=== PATIENT | male | born 1995 | race Caucasian/White ===

== ENCOUNTER 2018-10-30 18:36 | Emergency (ER) | payer OTHER, SELFPAY ==
[2018-10-30 18:37] VITALS: BP 111/72; PULSE 120; RESP 16; TEMP 38.6; O2SAT 98; BMI 25.8
[2018-10-30 18:43] VITALS: BP 111/72; PULSE 112; RESP 14; TEMP 38.6; O2SAT 100
--- NOTE | 2018-10-30 18:45 | RAD_ITS ---
STUDY: X-RAY CHEST REASON FOR EXAM: Male, 23 years old. Cough. TECHNIQUE: PA and lateral views of the chest. COMPARISON: None. FINDINGS: The lungs are clear and expanded. There is no demonstrated pleural abnormality. Normal size heart. Normal mediastinum and robert. Normal visualized pulmonary arteries. Normal visualized aortic arch and descending thoracic aorta. There is minimal dextroscoliosis of the thoracic spine. Normal visualized ribs, clavicles, and shoulders. There is no demonstrated abnormality of the visualized soft tissue structures of the upper abdomen. RAD/Chest PA and Lateral IMPRESSION: No acute cardiopulmonary disease. Electronically Signed: Uriel Martinez DO at 19:40 EDT Tel [phone], Service support ,
--- NOTE | 2018-10-30 18:47 | ED.DCSUM_ITS ---
- ER Visit Summary Date of Service: 10/30/18 Chief Complaint: Back, head, chest pain History of Present Illness: The patient is a 23 M who presents with the above symptoms. It started early this morning. He states that he has had pain in his lower back as well as a headache and pain in his chest. Nothing makes his pain better or worse. He tried Excedrin without relief. He has had nausea without vomiting. He admits to some dysuria as well. He does have a history of migraine headaches in the past. He does have a mild sore throat as well. He is a smoker but denies any IV drug abuse. Physical Examination: Vital signs are reviewed. He is tachycardic with a temperature of 101.5. HEENT exam reveals erythematous throat but otherwise unremarkable. Heart is tachycardic and regular without murmurs. Lungs are clear to auscultation bilaterally. Abdomen is soft and nontender. He has diffuse lumbar tenderness to palpation. He has no rashes. His neurologic exam is normal. Test Results: White blood cell count 12. Potassium 3.4. Urinalysis and chest x-ray are negative for infection. Rapid strep is negative Emergency Department Course and Treatment: The patient was given Tylenol, normal saline, Toradol and Zofran. Upon reevaluation he was still having a headache. He was then given Reglan and Benadryl. The patient's exam is negative for any source of infection. He has no meningismus. I do not feel that this is meningitis. His neurologic exam is normal which would likely rule out encephalitis. He denies being an IV drug abuser so I doubt that a spinal epidural abscess would cause his symptoms. This is likely a viral illness. He will continue NSAIDs at home. I will give him naproxen. He will call his doctor tomorrow for follow-up. Treatment Plan: [] Disposition: Discharge Impression: Fever This note was generated with [employer] dictation software. It may contain incorrect words, spelling, and punctuation that were not noted in review of the chart prior to signing
--- NOTE | 2018-10-30 18:51 | ED.RN ---
PER DR. MARVIN, SEPSIS ALERT TO BE CANCELLED, IS NOT INDICATED AT THIS TIME. WILL CONTINUE TO MONITOR.
[2018-10-30] MEDS: Acetaminophen 500 MG Tablet 1000 MG PO (18:57)
[2018-10-30] MEDS: 0.9% Normal Saline 1,000 ML 999 ML IV ×2 (19:02→20:04)
[2018-10-30 19:11] LABS: Absolute Lymphocyte Count 0.76 X10^3/ul (0.83-4.51); Basophil# 0.02 X10^3/uL; Basophil% 0.2 % (0-1); Hemoglobin 17.3 g/dl (13.0-16.5); Lymphocyte # 0.76 X10^3/ul (4.0); Lymphocyte % 6.3 % (19-41); Mean Corp Hgb Conc 34.6 g/gl (32-36); Mean Corpuscular Volume 89.6 fL (80-94); Mean Platelet Vol. 11.1 fl (6.2-12.0); Monocyte# 1.21 X10^3/uL; Neutrophil # 10.01 X10^3/uL (2.7-7.7); Neutrophil % 83.2 % (47-70); Platelet Count 181 K/mm3 (150-450); RBC Distribution Width CV 12.9 % (11.6-14.6); RBC Distribution Width SD 42.7 fl (35.1-43.9); Red Blood Count 5.58 M/mm3 (4.6-6.2)
[2018-10-30 19:12] LABS: POSITIVE COUNT NO; POSITIVE DIFFERENTIAL NO; POSITIVE MORPHOLOGY NO
[2018-10-30 19:25] LABS: Anion Gap 8 (5-15); BUN 9 mg/dL (7-18); BUN/Creat Ratio 8.2 RATIO (10-20); Calcium,Total 9.3 mg/dL (8.5-10.1); Chloride 103 mmol/L (98-107); EST Glomerular Filtration Rate 87 mL/min (>60); Est Glom Filt Rate - Afr Amer 106 mL/min (>60); Estimated Creatinine Clearance 103.55 ml/min; Glucose 92 mg/dL (74-106); Potassium 3.4 mmol/L (3.5-5.1); Sodium Level 137 mmol/L (136-145)
--- NOTE | 2018-10-30 19:37 | ED.RN ---
PT REPORTS FEELING NAUSEOUS. DR. MARVIN INFORMED. PT TEMPERATURE ELEVATED. BLANKETS REMOVED FROM PT.
[2018-10-30 19:40] VITALS: BP 125/63; PULSE 107; RESP 16; TEMP 39.4; O2SAT 100
[2018-10-30] MEDS: Ketorolac 30 MG/ML Syringe IV (19:43)
[2018-10-30] MEDS: Ondansetron 4 MG/2 ML Vial IV (19:43)
--- NOTE | 2018-10-30 20:09 | ED.RN ---
PT ASSISTED UP TO RESTROOM 2 SEPARATE TIMES TO OBTAIN URINE SPECIMEN. PT UNABLE TO GIVE SPECIMEN EITHER TIME. PT BLADDER SCANNED SHOWING [address] MARVIN INFORMED AND ORDERS MORE FLUIDS. PT GIVEN ICE CHIPS. WILL CONTINUE TO MONITOR.
[2018-10-30 21:19] LABS: Bacteria 0 SEEN /hpf (None Seen); Mucous, Urine 0 SEEN /hpf (<or=2+); White Blood Cells 0 SEEN /hpf (0-5)
[2018-10-30 21:51] VITALS: BP 111/59; PULSE 86; RESP 17; TEMP 36.8; O2SAT 98
[2018-10-30 22:12] LABS: Color, Urine Yellow (Yellow); Glucose, Dipstick Normal (Normal); Ketone-Dipstick 50 mg/dl (Negative); Leukocyte Esterase-Dipstick Negative /ul (Negative); Nitrite-Dipstick Negative (Negative); Occult Blood-Urine 10 /ul (Negative); Protein-Dipstick Negative (Negative); Urine Bilirubin Dipstick Negative (Negative); Urine Clarity Sl. Cloudy (Clear); Urine Urobilinogen Normal (Normal)
[2018-10-30 22:29] LABS: Red Blood Cells-Urine 0-5 SEEN /hpf (0-5); Squamous Epithelial Cells - UA 0-5 SEEN /hpf (0-5)
[2018-10-30] MEDS: DiphenhydrAMINE 50 MG/ML Syringe 25 MG IV (22:38)
[2018-10-30] MEDS: Metoclopramide 10 MG/2 ML Vial IV (22:38)
--- NOTE | 2018-10-30 22:54 | ED.DEP ---
ED Disposition - Plan for ED Patient: Disposition: Home or Assisted Living Instructions: ED Fever Unconf Cause Prescriptions: RX: Naproxen [Naprosyn] 500 mg PO BID PRN #20 tab Referrals: Care Physician,No Primary [Primary Care Provider] -
[2018-10-30 23:33] VITALS: BP 98/47; PULSE 83; RESP 16; O2SAT 96
== END 2018-10-30 23:34 | disposition home or self-care (01) ==
PROVIDERS: Emergency Provider Emergency Medicine
DX: R50.9 Fever, unspecified (principal); R30.0 Dysuria; R51 Headache; R07.9 Chest pain, unspecified; R11.0 Nausea; M54.5 Low back pain; J02.9 Acute pharyngitis, unspecified; R00.0 Tachycardia, unspecified; F17.200 Nicotine dependence, unspecified, uncomplicated
CPT/HCPCS: 71046; 80048; 81001; 85025; 87880; 96361; 96374; 96375; 99283; J7030; A4216; J2405

== ENCOUNTER 2021-08-11 09:39 | Emergency (ER) | payer MEDICAID, SELFPAY ==
[2021-08-11 09:40] VITALS: BP 144/88; PULSE 86; RESP 17; TEMP 37.3; O2SAT 100; BMI 25.6
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
[2021-08-11] MEDS: Ibuprofen 400 MG Tablet 800 MG PO (10:17)
--- NOTE | 2021-08-11 10:19 | RAD_ITS ---
STUDY: X-RAY - RIGHT HAND REASON FOR EXAM: Male, 26 years old. Hand injury TECHNIQUE: 3 view(s) of the hand. COMPARISON: None. FINDINGS: Normal radiocarpal articulation. Normal distal radioulnar joint. Normal visualized carpal bones. Normal carpal articulations Normal carpometacarpal articulation of the thumb. Normal second through fifth carpometacarpal joints. Nondisplaced transverse fracture of the distal portion of the fifth metacarpal with mild dorsal angulation. Normal metacarpophalangeal joint of the thumb. Normal interphalangeal joint of the thumb. Normal proximal and distal phalanges of the thumb. Normal metacarpophalangeal joints of the second through fifth fingers. Normal proximal and distal interphalangeal joints of the second through fifth fingers. Normal phalanges of the second through fifth fingers. Diffuse soft tissue swelling. RAD/Hand Min 3 Views IMPRESSION: Nondisplaced transverse fracture along the distal portion of the fifth metacarpal with overlying soft tissue swelling and mild dorsal angulation. Electronically Signed: Kenyon Crockett MD at 10:58 EST ,
[2021-08-11] MEDS: HYDROcodone Bitartrate/Apap 5/325 Tablet PO (11:03)
== END 2021-08-11 11:16 | disposition home or self-care (01) ==
PROVIDERS: Emergency Provider Nurse Practitioner; Visit Provider Nurse Practitioner
DX: S62.396A Other fracture of fifth metacarpal bone, right hand, initial encounter for closed fracture (principal); W22.09XA Striking against other stationary object, initial encounter; Y93.89 Activity, other specified; Y99.8 Other external cause status; Y92.810 Car as the place of occurrence of the external cause; F17.210 Nicotine dependence, cigarettes, uncomplicated; F17.290 Nicotine dependence, other tobacco product, uncomplicated
CPT/HCPCS: 29126; 29125; 73130; 99283

== ENCOUNTER → 2022-01-10 | Outpatient (CLI) | payer BC, MEDICAID, SELFPAY | END | disposition home or self-care (01) | LOC: LABSPEC 12:06 | PROVIDERS: Visit Provider Family Medicine | DX: Z20.822 Contact with and (suspected) exposure to COVID-19 (principal) | CPT/HCPCS: 87635; U0003; U0005 ==

== ENCOUNTER → 2022-02-27 | Outpatient (CLI) | payer BC, MEDICAID, SELFPAY ==
--- NOTE | 2022-02-27 10:38 | MRI_ITS ---
STUDY: MRI THORACIC SPINE WITHOUT CONTRAST REASON FOR EXAM: Male, 26 years old. chronic thoracic back pain. Prior Xray and conservative treatmen TECHNIQUE: Standardized fat and water weighted pulse sequences were obtained in the sagittal and axial planes. COMPARISON: None. FINDINGS: Normal kyphosis of the thoracic spine. There is no substantial scoliosis. T1-2, T2-3, T3-4, T4-5, T5-6, T6-7, T7-8, T8-9, T9-10, T10-11, T11-12: Normal endplates. Normal disc hydration, heights and morphology of the corresponding intervertebral discs. Normal central canal and intervertebral neural foramina at the corresponding levels.Mild anterior Wedging T11 and T12. 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 No retropulsion. Normal visualized thoracic cord. Normal conus medullaris that terminates at the . The soft tissue structures are unremarkable. 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 No acute disease. Electronically Signed: Genaro Gongora MD at 22:57 EDT ,
== END | disposition home or self-care (01) ==
PROVIDERS: PCP Family Medicine; Visit Provider Family Medicine
DX: S22.080A Wedge compression fracture of T11-T12 vertebra, initial encounter for closed fracture (principal); X58.XXXA Exposure to other specified factors, initial encounter; M51.44 Schmorl's nodes, thoracic region; G89.29 Other chronic pain
CPT/HCPCS: 72146

== ENCOUNTER 2022-05-09 09:00 | Outpatient (RCR) | payer BC, MEDICAID, SELFPAY ==
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
--- NOTE | 2022-10-16 10:05 | HP.PT.NRP ---
RAMAN WATTS was seen in my office for initial evaluation on 04/26/22. The following Plan of Care was established for this patient: Initial Frequency: 2x /Week Initial Duration: 4 Weeks Patient/Client Instruction: Educate patient on: Condition, Plan of Care For the Purpose of:: To decrease pain, To increase ROM, To improve muscle performance and motor function, To improve ability of physical actions for home/community/work/leisure, To decrease soft tissue restriction, To increase flexibility/ROM, To reduce risk of recurrence, To prevent re-injury Therapeutic Exercise to Include: Strength training, Body mechanics, Postural training, Flexibilty training, Dynamic Lumbar Stabilization For the Purpose of:: To decrease pain, To increase ROM, To improve muscle performance and motor function, To improve ability to perform ADL's, To increase tolerance to activity/condition/position, To improve ability of physical actions for home/community/work/leisure, To improve health of tissue, To decrease soft tissue restriction, To increase flexibility/ROM, To prevent re-injury TENS: Yes IF ES: Yes Cryotherapy (ice pack, ice massage): Yes Thermo therapy (hot pack): Yes Ultrasound (thermal/non thermal): Yes For the Purpose of:: To decrease pain, To increase ROM, To improve health of tissue, To decrease soft tissue restriction This patient was last seen in our office . Pertinent comments regarding their Physical therapy will appear below: Patient was seen for PT for compression old fractures for HEP At this point I will be discontinuing this patient from physical therapy. I would be happy to see this patient again in the future if found appropriate by the physician. Thank you! Matt Montgomery, PT, Cert MDT, OCS Balance/Gait/Functional tests - Balance/Special Test Scores Oswestry Low Back Score: 22
== END 2022-05-09 19:00 | disposition home or self-care (01) ==
LOC: PT 09:00
PROVIDERS: PCP Family Medicine; Referring Provider Orthopaedic Surgery; Visit Provider Orthopaedic Surgery
DX: M54.6 Pain in thoracic spine (principal); Z87.81 Personal history of (healed) traumatic fracture
CPT/HCPCS: 97035; 97110; 97161

== ENCOUNTER 2023-01-15 00:01 | Emergency (ER) | payer MEDICAID, SELFPAY ==
[2023-01-15 00:02] VITALS: BP 133/69; PULSE 80; RESP 13; TEMP 36.4; O2SAT 100; BMI 27.1
--- NOTE | 2023-01-15 00:05 | EKG12_ITS ---
Test Reason : CP Blood Pressure : / mmHG Vent. Rate : 084 BPM Atrial Rate : 084 BPM P-R Int : 154 ms QRS Dur : 094 ms QT Int : 366 ms P-R-T Axes : 056 066 047 degrees QTc Int : 432 ms Normal sinus rhythm with sinus arrhythmia Normal ECG Confirmed by GIO CASTANEDA, KEVAN ([id number]), advertising editor WYATT BRADFORD ([id number]) on 01/15/2023 9:43:18 AM Referred By: SAMARA Confirmed By:KEVAN POWERS MD
--- NOTE | 2023-01-15 00:40 | RAD_ITS ---
EXAM: XR CHEST, 2 VIEWS CLINICAL INDICATION: chest pain TECHNIQUE: Frontal and lateral views of the chest. COMPARISON: 2 view chest 10/30/2018 FINDINGS: LUNGS AND PLEURAL SPACES: Unremarkable. No consolidation or edema. No pneumothorax. No effusion. HEART: Unremarkable. Cardiac silhouette not enlarged. MEDIASTINUM: Central airways and mediastinal contour are unremarkable. BONES/JOINTS: Unremarkable. SOFT TISSUES: Unremarkable. RAD/Chest PA and Lateral IMPRESSION: No radiographic evidence of acute cardiopulmonary disease. Electronically Signed: Byron Marin MD at 1:23 EDT ,
[2023-01-15] MEDS: Aspirin 325 MG Tablet PO (00:52)
[2023-01-15 01:01] VITALS: BP 128/72; PULSE 55; RESP 16; O2SAT 97
[2023-01-15 01:07] LABS: Troponin-I HS 4 pg/mL (3.0-78.0)
--- NOTE | 2023-01-15 01:32 | EDS_ITS ---
HPI History of Present Illness Chief Complaint: Chest Pain Informant: patient Narrative Narrative: PastPatient is a 27-year-old male medical history of compression fracture of the spine and hand fracture. He states he began work today at 6 PM and at that time noticed pain in his right chest wall. He states there is no trauma or excessive activity prior to the pain beginning. He denies any family history of cardiac disease at a young age. He denies any nausea vomiting diaphoresis or shortness of breath. He denies any history of illicit drug use. He states that there has been no recent travel surgery or history of DVT/PE. He reports he tried to make it through work but was having persistent pain and he does have a father who from a heart attack at age 56 and with this comes in for evaluation [facility] Medical History (Updated 01/15/23 @ 04:[address] Anthony Alonso, ) Anxiety Back pain Depression Full dentures Suicide attempt Home Medications buspirone 5 mg tablet 5 mg PO BID 04/12/22 [History Last Taken Unknown] Allergy/AdvReac Type Severity Reaction Status Date / Time ceftriaxone sodium Allergy Hives Verified 01/15/23 00:01 [From Rocephin] Family History (Updated 04/12/22 @ 14:15 by Angella Cornelius) Father Hypertension Myocardial infarction DDD (degenerative disc disease) Grandmother Myocardial infarction Diabetes Grandmother Myocardial infarction Diabetes Surgical History (Updated 04/12/22 @ 14:18 by Angella Cornelius) History of dental surgery Social History (Updated 04/12/22 @ 14:16 by Angella Cornelius) Smoking Status: Current every day smoker tobacco type: cigarettes and e- cigarettes alcohol intake: never substance use type: does not use what type of physical activity do you participate in: walking ROS ROS ED Constitutional Constitutional ED: Denies chills or fever(s) ENT ENT ED: Denies sore throat Cardiovascular Cardiovascular: Reports chest pain; Denies palpitations or racing heartbeat Respiratory/Chest Respiratory/Chest: Denies cough or dyspnea Gastrointestinal Gastrointestinal: Denies abdominal pain, diarrhea, nausea or vomiting Genitourinary Genitourinary ED: Denies dysuria Musculoskeletal Musculoskeletal: Denies myalgias Integumentary Denies rash Neurologic Neurologic: Denies headache(s) Hematologic/Lymphatic Hematologic/Lymphatic: Denies easy bleeding or easy bruising EXAM Physical Exam Const Vital Signs: 01/15/23 00:02 01/15/23 00:04 01/15/23 01:01 Temperature 97.6 F L Temperature Source Temporal Pulse Rate 80 55 L Respiratory Rate 13 16 Respiratory Effort Normal Blood Pressure 133/69 H 128/72 H Blood Pressure Mean 90 90 Pulse Ox 100 97 Oxygen Delivery Method Room Air 01/15/23 01:39 Temperature Temperature Source Pulse Rate 57 L Respiratory Rate 13 Respiratory Effort Blood Pressure 137/79 H Blood Pressure Mean Pulse Ox 96 Oxygen Delivery Method Positive well nourished and well developed General Appearance ED: well developed HEENT HEENT Narrative: Normocephalic atraumatic Eyes PERRL and EOMs intact bilaterally Neck supple Chest Wall Chest Narrative: There is reproducible anterior chest wall pain with palpation in the intercostal muscle belly regions ribs 6-8 the patient states is the same pain he has been experiencing. No overlying erythema or warmth. No bony deformity or crepitance Resp normal respiratory effort and clear to auscultation bilaterally Cardio regular rate and regular rhythm Rate: other Other Details: Radial and carotid pulses equal and symmetric GI normal to inspection, nondistended, normoactive bowel sounds, non-tender, non- distended and no masses GI Narrative: No voluntary guarding or rigidity. No pulsatile mass or fluid wave Auscultation: normoactive bowel sounds Palpation: soft Extremity normal to inspection Extremity Narrative: No asymmetric edema no pitting edema negative Homans' sign bilaterally Neuro oriented x3 and CN's II-XII intact bilaterally Sensorium / Orientation: alert Psych mental status grossly normal Skin no rashes or lesions noted MDM MDM MDM Narrative Medical decision making narrative: Patient presented to the ER with stable vitals and reported constant chest pain since approximately 6 PM. He is low risk for cardiovascular disease as well as DVT/PE but as he does have a father who had [place] and at age 55 I elected to perform a troponin EKG and chest x-ray. Differential diagnosis is for acute coronary syndrome versus pneumonia versus pneumothorax versus intercostal muscle strain versus anxiety. Patient is EKG revealed normal sinus rhythm without ischemic changes or findings concerning for pericarditis. Chest x-ray revealed no acute infiltrate pneumothorax or pleural effusion. Troponin was normal at 4 going against acute coronary syndrome or myocarditis. Therefore at this time as patient has a negative work-up with reproducible pain on exam I feel this is most likely chest wall/musculoskeletal pain and as he is low risk for cardiovascular disease is otherwise safe for discharge History & Record Review Discussion w/independent historian: Patient Lab Data Attestation: I reviewed the patient's lab results. Labs: Laboratory Results - last 24 hr 01/15/23 00:10 Troponin I High Sens 4 Radiography Diagnostic Testing: Clinical Impression(s) from Imaging Studies Chest X-Ray 01/15/23 00:40 IMPRESSION: No radiographic evidence of acute cardiopulmonary disease. Electronically Signed: Byron Marin MD at 1:23 EDT , Chest x-rays interpreted by the emergency medicine physician reveals no acute infiltrate pneumothorax pleural effusion or widening of the mediastinum Discharge Plan Triage Chief Complaint: Chest Pain ED Provider: Anthony Alonso Dx/Rx/DC Orders Clinical Impression: Acute nonspecific chest pain with low risk of coronary artery disease, Intercostal muscle strain Instructions: ED Chest Pain, Noncardiac, ED Chest Wall Strain Prescriptions: No Action buspirone 5 mg tablet 5 mg PO BID Stand Alone Forms: Work / School Excuse Primary Care Provider: Denisa Amor Referrals: Denisa Amor, DO [Primary Care Provider] - Disposition Disposition: Home, Self Care Discharge Date/Time: 01/15/23 01:41
[2023-01-15 01:39] VITALS: BP 137/79; PULSE 57; RESP 13; O2SAT 96
== END 2023-01-15 01:41 | disposition home or self-care (01) ==
PROVIDERS: Emergency Provider Emergency Medicine; PCP Family Medicine; Visit Provider Emergency Medicine
DX: S29.011A Strain of muscle and tendon of front wall of thorax, initial encounter (principal); X58.XXXA Exposure to other specified factors, initial encounter; F32.A Depression, unspecified; F41.9 Anxiety disorder, unspecified; F17.210 Nicotine dependence, cigarettes, uncomplicated; F17.290 Nicotine dependence, other tobacco product, uncomplicated; Z91.51 Personal history of suicidal behavior; Z82.49 Family history of ischemic heart disease and other diseases of the circulatory system
CPT/HCPCS: 71046; 84484; 93005; 99283; A4216